=== PATIENT | female | born 1985 | race Caucasian/White ===

== ENCOUNTER 2016-08-28 03:10 | Emergency (ER) | payer MEDICAID, OTHER ==
[2016-08-28] MEDS ORDERED: SODIUM CHLORIDE 0.9% 1,000 ML ONE (04:11)
[2016-08-28] MEDS ORDERED: FAMOTIDINE 20 MG INJ ONE (04:11)
[2016-08-28] MEDS ORDERED: ONDANSETRON 4 MG VIAL ONE (04:11)
== END 2016-08-28 05:13 | disposition home or self-care (01) ==
LOC: ER 03:10
DX: K52.9 Noninfective gastroenteritis and colitis, unspecified (principal)
CPT/HCPCS: 36415; 80053; 81003; 83690; 84703; 85025; 87804; 87880; 96361; 96374; 96375